=== PATIENT | female | born 1950 | race Asian ===

== ENCOUNTER 2019-02-11 08:42 | Emergency (ER) | payer MEDICARE, OTHER ==
[~2019-02-11] VITALS: Ht 162.6 cm; Wt 100.0 kg
[2019-02-11 08:55] LABS: GLUCOSE,POINT OF CARE 123 MG/DL (70-110)
[2019-02-11] MEDS ORDERED: METF-960 PO (08:57)
[2019-02-11] MEDS ORDERED: TELM40 PO (08:57)
[2019-02-11] MEDS ORDERED: IBUPROFEN 600 MG TABLET PO ONE (09:45)
[2019-02-11] MEDS ORDERED: AMOX TR/POT CLAV 875 MG/125 MG TABLET PO ONE (09:45)
[2019-02-11 09:57] VITALS: BP 180/77
== END 2019-02-11 10:06 | disposition home or self-care (01) ==
LOC: EEVIPCON 08:44 → EMS 08:44
DX: J02.9 Acute pharyngitis, unspecified (principal); E11.9 Type 2 diabetes mellitus without complications; I10 Essential (primary) hypertension; Z79.84 Long term (current) use of oral hypoglycemic drugs

== ENCOUNTER 2020-06-17 10:13 | Emergency (ER) | payer MEDICARE, OTHER ==
[~2020-06-17] VITALS: Ht 160 cm; Wt 102.7 kg
[~2020-06-17 10:13] MED LIST: METF-960 PO; TELM40 PO
[2020-06-17 10:49] VITALS: BP 156/75
[2020-06-17 19:15] LABS: GLUCOSE,POINT OF CARE 96 MG/DL (70-110)
== END 2020-06-17 12:30 | disposition home or self-care (01) ==
LOC: EMS 10:18
DX: Z20.828 Contact with and (suspected) exposure to other viral communicable diseases (principal); I10 Essential (primary) hypertension; E11.9 Type 2 diabetes mellitus without complications; Z79.84 Long term (current) use of oral hypoglycemic drugs
CPT/HCPCS: 87426

== ENCOUNTER 2020-09-30 12:37 | Emergency (ER) | payer MEDICARE, OTHER ==
[~2020-09-30] VITALS: Ht 160 cm; Wt 100.0 kg
[2020-09-30 12:58] VITALS: BP 144/91
[2020-09-30 13:22] LABS: COVID AG,FIA SOURCE NASOPHARYNGEAL
== END 2020-09-30 13:22 | disposition home or self-care (01) ==
LOC: EMS 12:39
DX: R68.83 Chills (without fever) (principal); J45.909 Unspecified asthma, uncomplicated; I10 Essential (primary) hypertension; E11.9 Type 2 diabetes mellitus without complications; Z20.828 Contact with and (suspected) exposure to other viral communicable diseases; Z79.84 Long term (current) use of oral hypoglycemic drugs
CPT/HCPCS: 87426; 99283; C9803; U0003